=== PATIENT | male | born 1935 | race Caucasian/White ===

== ENCOUNTER 2017-02-24 21:40 | Emergency (ER) | payer MEDICARE, BC ==
[2017-02-24 22:16] VITALS: BP 148/66
--- NOTE | 2017-02-24 23:10 | EDM.PDOC ---
ED HPI GENERAL MEDICAL PROBLEM - General Chief Complaint: Genitourinary Problem Stated Complaint: CATH ISSUES Time Seen by Provider: 02/24/17 22:20 Source of Information: Reports: Patient, Family History Limitations: Reports: No Limitations - History of Present Illness INITIAL COMMENTS - FREE TEXT/NARRATIVE: 81-year-old male with an indwelling Garcia catheter is having significant urethral pain. His catheter is not obstructed. He started an antibiotic 2 days ago. He is just in for some pain control. Apparently he is being rechecked by urology next week. 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, NSAIDS Penis Pain Score (Numeric/FACES): 10 - Related Data Allergies Allergy/AdvReac Type Severity Reaction Status Date / Time ciprofloxacin [From Cipro] Allergy Cannot Verified 02/24/17 22:18 Remember ciprofloxacin HCl Allergy Cannot Verified 02/24/17 22:18 [From Cipro] Remember latex Allergy Rash Verified 02/24/17 22:18 Home Meds: Home Meds Albuterol/Ipratropium [DuoNeb 3.0-0.5 MG/3 ML] 3 ml PO Q2H PRN 09/21/14 [History ] Arformoterol [Brovana] 2 ml NEB BID 09/21/14 [History] Budesonide [Pulmicort] 2 ml NEB BID 09/21/14 [History] Furosemide [Lasix] 80 mg PO BID 09/21/14 [History] Insulin Aspart [NovoLOG] 6 units SUBCUT TIDM 09/21/14 [History] Insulin Glargine,Hum.Rec.Anlog [Lantus Solostar] 25 mg SUBCUT BEDTIME 09/21/14 [ History] Metolazone [Zaroxolyn] 5 mg PO DAILY 09/21/14 [History] Warfarin Sliding Scale [Coumadin Sliding Scale] 5 mg PO .MOTOTHFRSASU 09/21/14 [ History] Isosorbide Mononitrate [Imdur] 60 mg PO DAILY 10/22/14 [History] Warfarin Sliding Scale [Coumadin Sliding Scale] 6.25 mg PO WE 10/22/14 [History] Diltiazem HCl [Diltiazem 24Hr Cd] 240 mg PO DAILY 05/14/16 [History] Docusate Sodium [Colace] 250 mg PO TID 05/14/16 [History] Polyethylene Glycol 3350 [MiraLAX] 17 gm PO MOWEFR 05/14/16 [History] Potassium Chloride [Klor-Con M20] 20 meq PO BID 05/14/16 [History] Sennosides [Senna] 8.6 mg PO BID 05/14/16 [History] Albuterol Sulfate [Proair Hfa] 2 puff INH Q4H PRN 05/24/16 [History] Calcium Acetate [PhosLo] 1,334 mg PO TID 05/24/16 [History] Cyanocobalamin/FA/Pyridoxine [B Complex-Folic Acid] 1 tab PO DAILY 05/24/16 [ History] Fosfomycin Tromethamine [Monurol] 3 gm PO SA 05/24/16 [History] Past Medical History HEENT History: Reports: Hard of Hearing, Impaired Vision Cardiovascular History: Reports: Aneurysm, CAD, Heart Failure, High Cholesterol , Hypertension Respiratory History: Reports: COPD, Sleep Apnea Gastrointestinal History: Reports: Chronic Constipation, Hemorrhoids Genitourinary History: Reports: Dialysis, Retention, Urinary, Other (See Below) Other Genitourinary History: Has garcia Musculoskeletal History: Reports: Back Pain, Chronic Psychiatric History: Reports: Dementia Endocrine/Metabolic History: Reports: Diabetes, Type I - Infectious Disease History Infectious Disease History: Reports: Chicken Pox - Past Surgical History HEENT Surgical History: Reports: Other (See Below) Cardiovascular Surgical History: Reports: Coronary Artery Stent Social & Family History - Tobacco Use Smoking Status *Q: Current Status Unknown Years of Tobacco use: 5 Used Tobacco, but Quit: Yes Month Tobacco Last Used: sep Second Hand Smoke Exposure: No - Caffeine Use Caffeine Use: Reports: Coffee - Alcohol Use Days Per Week of Alcohol Use: 0 - Recreational Drug Use Recreational Drug Use: No ED ROS GENERAL - Review of Systems Review Of Systems: See Below Constitutional: Denies: Fever, Chills Respiratory: Denies: Shortness of Breath GI/Abdominal: Reports: Abdominal Pain (Lower abdominal and suprapubic discomfort ) : Reports: Urgency, Other (Indwelling Garcia catheter). Denies: Dysuria ED EXAM, RENAL/ - Physical Exam Exam: See Below Exam Limited By: No Limitations General Appearance: Alert, No Apparent Distress Respiratory/Chest: No Respiratory Distress GI/Abdominal: Non-Tender Neurological: Alert, Oriented Skin Exam: Warm, Dry Course - Vital Signs Last Recorded V/S: Last Vital Signs Temp 98.6 F 02/24/17 22:09 Pulse 80 02/24/17 22:09 Resp 14 02/24/17 22:09 BP 148/66 H 02/24/17 22:09 Pulse Ox 96 02/24/17 22:09 - Re-Assessments/Exams Free Text/Narrative Re-Assessment/Exam: 02/25/17 01:05 After discussion with the patient and his , I did agree to give him 20 hydrocodone to use for pain control until he can be rechecked Sunday by his primary physician. I emphasized the importance of continuing the antibiotic. He can return anytime if worsening. Departure - Departure Time of Disposition: 23:41 Disposition: Home, Self-Care 01 Condition: fair Clinical Impression: Urethritis, unspecified - Discharge Information Instructions: Urethritis, Adult Referrals: Cyrus Deleon MD [Primary Care Provider] - Forms: ED Department Discharge Care Plan Goals: Continue your regular medications including antibiotics, use pain medications as needed. Recheck as scheduled.
== END 2017-02-24 23:15 | disposition home or self-care (01) ==
LOC: JP.ED 21:40
DX: N34.2 Other urethritis (principal); I10 Essential (primary) hypertension; I50.9 Heart failure, unspecified; I25.10 Atherosclerotic heart disease of native coronary artery without angina pectoris; E78.00 Pure hypercholesterolemia, unspecified; J44.9 Chronic obstructive pulmonary disease, unspecified; E10.9 Type 1 diabetes mellitus without complications; F03.90 Unspecified dementia, unspecified severity, without behavioral disturbance, psychotic disturbance, mood disturbance, and anxiety; Z79.4 Long term (current) use of insulin; Z79.01 Long term (current) use of anticoagulants; Z79.899 Other long term (current) drug therapy; Z88.1 Allergy status to other antibiotic agents; Z91.040 Latex allergy status; Z95.5 Presence of coronary angioplasty implant and graft
CPT/HCPCS: 99282; 99283

== ENCOUNTER 2017-05-07 15:12 | Emergency (ER) | payer MEDICARE, BC ==
--- NOTE | 2017-05-07 16:08 | EDM.PDOC ---
ED HPI GENERAL MEDICAL PROBLEM - General Chief Complaint: Chest Pain Stated Complaint: CAME FROM [facility] Time Seen by Provider: 05/07/17 15:40 Source of Information: Reports: Patient, Family History Limitations: Reports: No Limitations - History of Present Illness INITIAL COMMENTS - FREE TEXT/NARRATIVE: Patient presents to ER today from dialysis center with complaints of left sided chest pain. He states he fell last night out of bed onto the floor. He was not able to get up out of bed and lift assistance was requested. Onset: Today Duration: Hour(s): Location: Reports: Other (left lateral chest) Quality: Reports: Ache, Stabbing, Throbbing Severity: Moderate Improves with: Reports: None Worsens with: Reports: Movement Associated Symptoms: Reports: Chest Pain, Shortness of Breath. Denies: Cough, Diaphoresis, Fever/Chills, Headaches, Nausea/Vomiting Left Lower Chest Pain Score (Numeric/FACES): 8 - Related Data Allergies Allergy/AdvReac Type Severity Reaction Status Date / Time ciprofloxacin [From Cipro] Allergy Cannot Verified 05/07/17 15:31 Remember ciprofloxacin HCl Allergy Cannot Verified 05/07/17 15:31 [From Cipro] Remember latex Allergy Rash Verified 05/07/17 15:31 Home Meds: Home Meds Albuterol/Ipratropium [DuoNeb 3.0-0.5 MG/3 ML] 3 ml PO Q2H PRN 09/21/14 [History ] Arformoterol [Brovana] 2 ml NEB BID 09/21/14 [History] Budesonide [Pulmicort] 2 ml NEB BID 09/21/14 [History] Furosemide [Lasix] 80 mg PO BID 09/21/14 [History] Insulin Aspart [NovoLOG] 6 units SUBCUT TIDM 09/21/14 [History] Insulin Glargine,Hum.Rec.Anlog [Lantus Solostar] 25 mg SUBCUT BEDTIME 09/21/14 [ History] Metolazone [Zaroxolyn] 5 mg PO DAILY 09/21/14 [History] Warfarin Sliding Scale [Coumadin Sliding Scale] 5 mg PO .MOTOTHFRSASU 09/21/14 [ History] Isosorbide Mononitrate [Imdur] 60 mg PO DAILY 10/22/14 [History] Warfarin Sliding Scale [Coumadin Sliding Scale] 6.25 mg PO WE 10/22/14 [History] Diltiazem HCl [Diltiazem 24Hr Cd] 240 mg PO DAILY 05/14/16 [History] Docusate Sodium [Colace] 250 mg PO TID 05/14/16 [History] Polyethylene Glycol 3350 [MiraLAX] 17 gm PO MOWEFR 05/14/16 [History] Potassium Chloride [Klor-Con M20] 20 meq PO BID 05/14/16 [History] Sennosides [Senna] 8.6 mg PO BID 05/14/16 [History] Albuterol Sulfate [Proair Hfa] 2 puff INH Q4H PRN 05/24/16 [History] Calcium Acetate [PhosLo] 1,334 mg PO TID 05/24/16 [History] Cyanocobalamin/FA/Pyridoxine [B Complex-Folic Acid] 1 tab PO DAILY 05/24/16 [ History] Fosfomycin Tromethamine [Monurol] 3 gm PO SA 05/24/16 [History] Past Medical History HEENT History: Reports: Hard of Hearing, Impaired Vision Cardiovascular History: Reports: Afib, Aneurysm, CAD, Heart Failure, High Cholesterol, Other (See Below) Other Cardiovascular History: hypotension Respiratory History: Reports: COPD, Sleep Apnea, Other (See Below) Other Respiratory History: C-pap at home Gastrointestinal History: Reports: Chronic Constipation, Hemorrhoids Genitourinary History: Reports: Dialysis, Retention, Urinary, Other (See Below) Other Genitourinary History: self cath Musculoskeletal History: Reports: Back Pain, Chronic Psychiatric History: Reports: Dementia, Depression Endocrine/Metabolic History: Reports: Diabetes, Type I - Infectious Disease History Infectious Disease History: Reports: Chicken Pox, Measles, Mumps, Shingles - Past Surgical History HEENT Surgical History: Reports: Cataract Surgery Cardiovascular Surgical History: Reports: Coronary Artery Stent Social & Family History - Tobacco Use Smoking Status *Q: Current Status Unknown Years of Tobacco use: 5 Used Tobacco, but Quit: Yes Month Tobacco Last Used: sep Second Hand Smoke Exposure: No - Caffeine Use Caffeine Use: Reports: Coffee, Soda - Alcohol Use Days Per Week of Alcohol Use: 0 - Recreational Drug Use Recreational Drug Use: No ED ROS GENERAL - Review of Systems Review Of Systems: See Below Constitutional: Denies: Fever, Chills, Diaphoresis HEENT: Reports: No Symptoms Respiratory: Reports: Shortness of Breath, Sputum. Denies: Wheezing, Pleuritic Chest Pain, Cough, Hemoptysis Cardiovascular: Reports: Chest Pain, Dyspnea on Exertion. Denies: Edema, Lightheadedness, Palpitations, Syncope Endocrine: Reports: No Symptoms GI/Abdominal: Denies: Abdominal Pain, Constipation, Diarrhea, Nausea, Vomiting : Reports: Urinary Retention, Other (Patient self-cath). Denies: Discharge, Dysuria, Flank Pain, Urgency Musculoskeletal: Reports: Other (He reports left rib pain radiates to left mid- back area. ). Denies: Neck Pain, Shoulder Pain Skin: Denies: Bruising, Rash, Erythema, Wound Neurological: Reports: Weakness. Denies: Confusion, Dizziness, Headache, Numbness, Syncope, Tingling Psychiatric: Reports: No Symptoms Hematologic/Lymphatic: Reports: No Symptoms Immunologic: Reports: No Symptoms ED EXAM, GENERAL - Physical Exam Exam: See Below Free Text/Narrative:: Venkat is an alert, oriented 81 year old male presenting with complaints of left lateral rib pain radiating to chest, SOB with exertion and speaking. He was completing his dialysis run today and he developed chest pain, left rib pain. Fall last night out of bed, he is unsure if he hit his left side on any objects. Exam Limited By: No Limitations General Appearance: Alert, WD/WN, Moderate Distress Eye Exam: Bilateral Eye: EOMI, PERRL Ears: Normal External Exam, Normal Canal, Hearing Grossly Normal, Other ( Cerumen to bilateral canals. ) Ear Exam: Bilateral Ear: Auricle Normal, Canal Normal Nose: Normal Inspection, Normal Mucosa, No Blood Throat/Mouth: Normal Inspection, Normal Lips, Normal Oropharynx, Normal Voice, No Airway Compromise Head: Atraumatic, Normocephalic Neck: Normal Inspection, Supple, Non-Tender, Full Range of Motion. No: Lymphadenopathy (R), Lymphadenopathy (L) Respiratory/Chest: Decreased Breath Sounds, Accessory Muscle Use, Splinting, Other (left rib pain) Cardiovascular: No Edema, No Murmur, Other (Atrial fibrillation) Peripheral Pulses: 1+: Dorsalis Pedis (L), Dorsalis Pedis (R), 2+: Radial (L), Radial (R) GI/Abdominal: Normal Bowel Sounds, Soft, Non-Tender, Other (large, round abdomen ) Back Exam: Normal Inspection, Full Range of Motion. No: CVA Tenderness (R), CVA Tenderness (L) Extremities: Normal Range of Motion, Non-Tender, No Pedal Edema, Other (Left great toe wound with mild redness, right foot callous to lateral aspect, callous noted to right great toe. Mild erythema to left great toe, no fluctuance noted. ) Neurological: Alert, Oriented, CN II-XII Intact, Normal Cognition, No Motor/ Sensory Deficits Psychiatric: Normal Affect, Flat Affect Skin Exam: Warm, Dry, Intact, Normal Color, No Rash EKG INTERPRETATION EKG Date: 05/07/17 EKG Interpretation Comments: Atrial fibrillation Course - Vital Signs Last Recorded V/S: Last Vital Signs Temp 36.4 C 05/07/17 15:30 Pulse 95 05/07/17 17:20 Resp 20 05/07/17 17:20 BP 132/51 L 05/07/17 17:20 Pulse Ox 98 05/07/17 17:20 - Orders/Labs/Meds Orders: Active Orders 24 hr Category Date Time Status EKG Documentation Completion [RC] ASDIRECTED Care 05/07/17 15:28 Active Chest wo Cont [CT] Stat Exams 05/07/17 15:54 Taken EKG 12 Lead [EK] Routine Ther 05/07/17 15:28 Ordered Labs: Laboratory Tests 05/07/17 05/07/17 05/07/17 Range/Units 15:57 16:05 16:05 WBC 6.9 (4.5-11.0) K/uL RBC 3.55 L (4.30-5.90) M/uL Hgb 12.1 (12.0-15.0) g/dL Hct 34.7 L (40.0-54.0) % MCV 98 (80-98) fL MCH 34 H (27-31) pg MCHC 35 (32-36) % Plt Count 234 (150-400) K/uL Neut % (Auto) 72 H (36-66) % Lymph % (Auto) 15 L (24-44) % Grand % (Auto) 10 H (2-6) % Eos % (Auto) 2 (2-4) % Baso % (Auto) 0 (0-1) % PT 43.5 H (9.5-12.0) sec INR 3.84 H (0.80-1.20) APTT 43.9 H (27.0-36.0) sec Puncture Site Rt.radial ABG pH 7.505 H (7.350-7.450) ABG pCO2 33.4 L (35.0-42.0) mmHg ABG pO2 73.6 L (75.0-100.0) mmHg ABG HCO3 26.2 H (22.0-26.0) mmol/L ABG Total CO2 23.3 (23.0-27.0) mmol/L ABG O2 Saturation 95.5 (95.0-98.0) % ABG O2 Content 15.6 (15.0-23.0) %vol ABG Base Excess 3.6 mm/L ABG Hemoglobin 11.8 L (13.5-18.0) g/dL ABG Oxyhemoglobin 93.7 % ABG Carboxyhemoglobin 1.4 (0.0-1.6) % ABG Methemoglobin 0.5 % Michael Test TNP O2 Delivery Device Nasal cannula Oxygen Flow Rate 4 L Sodium (140-148) mmol/L Potassium (3.6-5.2) mmol/L Chloride (100-108) mmol/L Carbon Dioxide (21-32) mmol/L Anion Gap (5.0-14.0) mmol/L BUN (7-18) mg/dL Creatinine (0.8-1.3) mg/dL Est Cr Clr Drug Dosing mL/min Estimated GFR (MDRD) (>60) Glucose (74-106) mg/dL Calcium (8.5-10.1) mg/dL Magnesium (1.8-2.4) mg/dL Total Bilirubin (0.2-1.0) mg/dL AST (15-37) U/L ALT (12-78) U/L Alkaline Phosphatase (46-116) U/L Troponin I (0.000-0.056) ng/mL [id number]-G-[id number] Pept (5-450) pg/mL Total Protein (6.4-8.2) g/dL Albumin (3.4-5.0) g/dL Globulin (2.3-3.5) g/dL Albumin/Globulin Ratio (1.2-2.2) TSH, Ultra Sensitive (0.358-3.740) uIU/mL Urine Color Urine Appearance Urine pH (4.5-8.0) Ur Specific [place] (1.008-1.030) Urine Protein (NEGATIVE) mg/dL Urine Glucose (UA) (NEGATIVE) mg/dL Urine Ketones (NEGATIVE) mg/dL Urine Occult Blood (NEGATIVE) Urine Nitrite (NEGAITVE) Urine Bilirubin (NEGATIVE) Urine Urobilinogen (NORMAL) mg/dL Ur Leukocyte Esterase (NEGATIVE) 05/07/17 05/07/17 05/07/17 Range/Units 16:05 16:06 16:06 WBC (4.5-11.0) K/uL RBC (4.30-5.90) M/uL Hgb (12.0-15.0) g/dL Hct (40.0-54.0) % MCV (80-98) fL MCH (27-31) pg MCHC (32-36) % Plt Count (150-400) K/uL Neut % (Auto) (36-66) % Lymph % (Auto) (24-44) % Grand % (Auto) (2-6) % Eos % (Auto) (2-4) % Baso % (Auto) (0-1) % PT (9.5-12.0) sec INR (0.80-1.20) APTT (27.0-36.0) sec Puncture Site ABG pH (7.350-7.450) ABG pCO2 (35.0-42.0) mmHg ABG pO2 (75.0-100.0) mmHg ABG HCO3 (22.0-26.0) mmol/L ABG Total CO2 (23.0-27.0) mmol/L ABG O2 Saturation (95.0-98.0) % ABG O2 Content (15.0-23.0) %vol ABG Base Excess mm/L ABG Hemoglobin (13.5-18.0) g/dL ABG Oxyhemoglobin % ABG Carboxyhemoglobin (0.0-1.6) % ABG Methemoglobin % Michael Test O2 Delivery Device Oxygen Flow Rate L Sodium 130 L (140-148) mmol/L Potassium 4.4 (3.6-5.2) mmol/L Chloride 90 L (100-108) mmol/L Carbon Dioxide 33 H (21-32) mmol/L Anion Gap 11.4 (5.0-14.0) mmol/L BUN 45 H (7-18) mg/dL Creatinine 4.6 H* (0.8-1.3) mg/dL Est Cr Clr Drug Dosing 13.59 mL/min Estimated GFR (MDRD) 12 L (>60) Glucose 90 (74-106) mg/dL Calcium 9.0 (8.5-10.1) mg/dL Magnesium 2.0 (1.8-2.4) mg/dL Total Bilirubin 0.6 (0.2-1.0) mg/dL AST 14 L (15-37) U/L ALT 18 (12-78) U/L Alkaline Phosphatase 46 (46-116) U/L Troponin I < 0.017 (0.000-0.056) ng/mL Sww-Y-Ujbjketqskj Pept 2697 H (5-450) pg/mL Total Protein 7.8 (6.4-8.2) g/dL Albumin 3.7 (3.4-5.0) g/dL Globulin 4.1 H (2.3-3.5) g/dL Albumin/Globulin Ratio 0.9 L (1.2-2.2) TSH, Ultra Sensitive 1.837 (0.358-3.740) uIU/mL Urine Color Urine Appearance Urine pH (4.5-8.0) Ur Specific [place] (1.008-1.030) Urine Protein (NEGATIVE) mg/dL Urine Glucose (UA) (NEGATIVE) mg/dL Urine Ketones (NEGATIVE) mg/dL Urine Occult Blood (NEGATIVE) Urine Nitrite (NEGAITVE) Urine Bilirubin (NEGATIVE) Urine Urobilinogen (NORMAL) mg/dL Ur Leukocyte Esterase (NEGATIVE) 05/07/17 Range/Units 17:29 WBC (4.5-11.0) K/uL RBC (4.30-5.90) M/uL Hgb (12.0-15.0) g/dL Hct (40.0-54.0) % MCV (80-98) fL MCH (27-31) pg MCHC (32-36) % Plt Count (150-400) K/uL Neut % (Auto) (36-66) % Lymph % (Auto) (24-44) % Grand % (Auto) (2-6) % Eos % (Auto) (2-4) % Baso % (Auto) (0-1) % PT (9.5-12.0) sec INR (0.80-1.20) APTT (27.0-36.0) sec Puncture Site ABG pH (7.350-7.450) ABG pCO2 (35.0-42.0) mmHg ABG pO2 (75.0-100.0) mmHg ABG HCO3 (22.0-26.0) mmol/L ABG Total CO2 (23.0-27.0) mmol/L ABG O2 Saturation (95.0-98.0) % ABG O2 Content (15.0-23.0) %vol ABG Base Excess mm/L ABG Hemoglobin (13.5-18.0) g/dL ABG Oxyhemoglobin % ABG Carboxyhemoglobin (0.0-1.6) % ABG Methemoglobin % Michael Test O2 Delivery Device Oxygen Flow Rate L Sodium (140-148) mmol/L Potassium (3.6-5.2) mmol/L Chloride (100-108) mmol/L Carbon Dioxide (21-32) mmol/L Anion Gap (5.0-14.0) mmol/L BUN (7-18) mg/dL Creatinine (0.8-1.3) mg/dL Est Cr Clr Drug Dosing mL/min Estimated GFR (MDRD) (>60) Glucose (74-106) mg/dL Calcium (8.5-10.1) mg/dL Magnesium (1.8-2.4) mg/dL Total Bilirubin (0.2-1.0) mg/dL AST (15-37) U/L ALT (12-78) U/L Alkaline Phosphatase (46-116) U/L Troponin I (0.000-0.056) ng/mL Bhm-K-Tnelvensxpu Pept (5-450) pg/mL Total Protein (6.4-8.2) g/dL Albumin (3.4-5.0) g/dL Globulin (2.3-3.5) g/dL Albumin/Globulin Ratio (1.2-2.2) TSH, Ultra Sensitive (0.358-3.740) uIU/mL Urine Color Yellow Urine Appearance Clear Urine pH 7.0 (4.5-8.0) Ur Specific [place] 1.010 (1.008-1.030) Urine Protein Negative (NEGATIVE) mg/dL Urine Glucose (UA) Normal (NEGATIVE) mg/dL Urine Ketones Negative (NEGATIVE) mg/dL Urine Occult Blood Trace (NEGATIVE) Urine Nitrite Negative (NEGAITVE) Urine Bilirubin Negative (NEGATIVE) Urine Urobilinogen Normal (NORMAL) mg/dL Ur Leukocyte Esterase Large (NEGATIVE) Meds: Medications Discontinued Medications Generic Name Dose Route Start Last Admin Trade Name Freq PRN Reason Stop Dose Admin Furosemide 60 mg 05/07/17 17:34 Lasix IVPUSH 05/07/17 17:35 ONETIME ONE Furosemide 60 mg 05/07/17 17:51 Lasix IM 05/07/17 17:52 ONETIME ONE - Re-Assessments/Exams Free Text/Narrative Re-Assessment/Exam: 05/07/17 17:35 Patient status, lab work reviewed with Dr. Lovell. Patient offered transfer to tertiary facility, patient and his declined. Patient continues to be DNR status. Will give lasix 60mg IM, discharge to home, complete extra dialysis run tomorrow with routine runs as scheduled this week. Strongly recommended close follow up with Dr. Deleon and nephrology On Sunday for recheck. Instructed patient and his to return for any worsening. Departure - Departure Time of Disposition: 17:39 Disposition: Home, Self-Care 01 Condition: Poor Clinical Impression: Congestive heart failure (CHF), Rib pain on left side, Anxiety Instructions: Heart Failure, Dnas-yw-Arjx, Rib Contusion Referrals: Cyrus Deleon MD [Primary Care Provider] - Forms: ED Department Discharge Additional Instructions: You have suffered chest pain during your dialysis run after a fall from bed, congestive heart failure and chronic renal disease. You will need to complete the scheduled extra dialysis run tomorrow in [place], [place] as well as your routine run on Sunday this week. CT of the chest showed no trauma or fractures. All other findings were consistent with previous CT scan. Transfer to [place] was offered today and declined. You need to follow up with nephrology and Dr. Deleon this week to discuss your chronic illnesses and continued care. Take current medications as directed. You can take hydroxyzine 25mg PO three times a day for anxiety. Use of acetaminophen for pain. Return to the nearest ER or clinic for worsening, issues or concerns. - My Orders Last 24 Hours: My Active Orders 05/07/17 15:28 EKG Documentation Completion [RC] ASDIRECTED EKG 12 Lead [EK] Routine 05/07/17 15:54 Chest wo Cont [CT] Stat - Assessment/Plan Last 24 Hours: My Active Orders 05/07/17 15:28 EKG Documentation Completion [RC] ASDIRECTED EKG 12 Lead [EK] Routine 05/07/17 15:54 Chest wo Cont [CT] Stat Assessment:: CHF CKD Dialysis Anxiety Plan: Chest pain during dialysis run after a fall from bed, congestive heart failure, anxiety and chronic renal disease. Patient will need to complete the scheduled extra dialysis run tomorrow in [place], [place] as well as routine run on Sunday/Sunday this week. CT of the chest showed no trauma or fractures. All other findings were consistent with previous CT scan. Transfer to [place] was offered today and declined by patient and his x 3. Patient is DNR status. Patient needs to follow up with nephrology and Dr. Deleon this week as soon as possible to discuss your chronic illnesses and continued care due to chronic nature and declining status. Patient and his 's questions answered, they are in agreement with plan. Take current medications as directed. You can take hydroxyzine 25mg PO three times a day for anxiety and acetaminophen for pain. Return to the nearest ER or clinic for worsening, issues or concerns.
[2017-05-07] MEDS ORDERED: Furosemide 40 MG/4 ML VIAL IVPUSH ONE (17:34)
[2017-05-07] MEDS ORDERED: Furosemide 40 MG/4 ML VIAL IM ONE (17:51)
[2017-05-07 18:27] VITALS: BP 127/57
== END 2017-05-07 18:33 | disposition home or self-care (01) ==
LOC: JP.ED 15:12
DX: I50.9 Heart failure, unspecified (principal); R07.81 Pleurodynia; F41.9 Anxiety disorder, unspecified; I48.91 Unspecified atrial fibrillation; I25.10 Atherosclerotic heart disease of native coronary artery without angina pectoris; E78.00 Pure hypercholesterolemia, unspecified; F32.9 Major depressive disorder, single episode, unspecified; J44.9 Chronic obstructive pulmonary disease, unspecified; F03.90 Unspecified dementia, unspecified severity, without behavioral disturbance, psychotic disturbance, mood disturbance, and anxiety; E10.9 Type 1 diabetes mellitus without complications; Z98.49 Cataract extraction status, unspecified eye; Z95.1 Presence of aortocoronary bypass graft; Z79.01 Long term (current) use of anticoagulants; Z79.4 Long term (current) use of insulin; Z79.899 Other long term (current) drug therapy; Z88.1 Allergy status to other antibiotic agents; Z91.040 Latex allergy status
CPT/HCPCS: 36415; 36600; 71250; 80053; 81003; 82803; 83735; 83880; 84443; 84484; 85025; 85610; 85730; 87086; 87088; 87186; 93005; 96372; 99285; J1940; 93010; 99284

== ENCOUNTER 2017-06-08 12:41 | Emergency (ER) | payer MEDICARE, BC ==
--- NOTE | 2017-06-08 13:48 | EDM.PDOC ---
ED HPI GENERAL MEDICAL PROBLEM - General Chief Complaint: Gastrointestinal Problem Stated Complaint: NAUSEA,COUGH Time Seen by Provider: 06/08/17 13:15 Source of Information: Reports: Patient, Family History Limitations: Reports: Altered Mental Status, Uncooperative (chronic dementia, conflicting history between pt and ) - History of Present Illness INITIAL COMMENTS - FREE TEXT/NARRATIVE: Patient became nauseated and had either an episode of a very mucoid sputum production or non-billeous emisis. History conflicts between patient report and his . States was nauseated after taking Percocet, perhaps since yesterday (although some complaints of nausea/dyspepsia are variably reported by patient to be chronic), and was driving to dialysis and had possible single emisis. initially wanted to go to [place], to see surgeon who did some sort of revascularization procedure yesterday (under what sounds like MAC, patient/ uncertain if received IV regional or nerve block as well), but was sent to ED by dialysis center. His last dialysis was 2d ago, and they took off 4.8 of intended 5.1L when he had a syncopal/hypotensive episode which was self limited. He has noted an increase in sputum production, either since last night or over the last two months--patient/ uncertain. No fever, has had chronic intermittent nausea, which may be worse preprandially , but not relieved or exacerbated by eating. Also reports crampy abdominal pain for months. No diarrhea, states chronic constipation. Denies chest pain, diaphoresis. Self caths ( performs), with recent darkening of urine noted. No syncope since dialysis 2 days ago. Denies back/flank pain. Onset: Today Duration: Hour(s):, Colic (maybe), Intermittent, Recurring. No: Constant Location: Reports: Abdomen Quality: Reports: Dull Improves with: Denies: Eating Worsens with: Reports: None Associated Symptoms: Reports: Confusion (chronic), Cough (chronic), Loss of Appetite (chronic), Malaise (possibly new symptom), Nausea/Vomiting, Shortness of Breath (chronic). Denies: Chest Pain, Diaphoresis, Fever/Chills, Headaches, Rash Abdomen Pain Score (Numeric/FACES): 6 - Related Data Allergies Allergy/AdvReac Type Severity Reaction Status Date / Time ciprofloxacin [From Cipro] Allergy Cannot Verified 06/08/17 13:17 Remember ciprofloxacin HCl Allergy Cannot Verified 06/08/17 13:17 [From Cipro] Remember latex Allergy Rash Verified 06/08/17 13:17 Home Meds: Home Meds Albuterol/Ipratropium [DuoNeb 3.0-0.5 MG/3 ML] 3 ml PO Q2H PRN 09/21/14 [History ] Arformoterol [Brovana] 2 ml NEB BID 09/21/14 [History] Budesonide [Pulmicort] 2 ml NEB BID 09/21/14 [History] Furosemide [Lasix] 80 mg PO BID 09/21/14 [History] Insulin Aspart [NovoLOG] 6 units SUBCUT TIDM 09/21/14 [History] Insulin Glargine,Hum.Rec.Anlog [Lantus Solostar] 35 mg SUBCUT BEDTIME 09/21/14 [ History] Warfarin Sliding Scale [Coumadin Sliding Scale] 5 mg PO ASDIRECTED 09/21/14 [ History] Warfarin Sliding Scale [Coumadin Sliding Scale] 6.25 mg PO ASDIRECTED 10/22/14 [ History] Diltiazem HCl [Diltiazem 24Hr Cd] 240 mg PO DAILY 05/14/16 [History] Docusate Sodium [Colace] 250 mg PO TID 05/14/16 [History] Sennosides [Senna] 8.6 mg PO BID 05/14/16 [History] Albuterol Sulfate [Proair Hfa] 2 puff INH Q4H PRN 05/24/16 [History] Calcium Acetate [PhosLo] 1,334 mg PO TID 05/24/16 [History] Cyanocobalamin/FA/Pyridoxine [B Complex-Folic Acid] 1 tab PO DAILY 05/24/16 [ History] Enoxaparin [Lovenox] 80 mg IM BEDTIME 06/08/17 [History] Finasteride 5 mg PO DAILY 06/08/17 [History] Midodrine 5 mg PO ASDIRECTED 06/08/17 [History] Ondansetron [Zofran ODT] 4 mg PO Q6H PRN 06/08/17 [History] Phenazopyridine [Pyridium] 200 mg PO TID PRN 06/08/17 [History] clonazePAM [Clonazepam] 0.25 mg PO TID PRN 06/08/17 [History] oxyCODONE HCl/Acetaminophen [oxyCODONE-Acetaminophen 5-325] 1 tab PO Q4H PRN [History] Past Medical History HEENT History: Reports: Hard of Hearing, Impaired Vision Cardiovascular History: Reports: Afib, Aneurysm, CAD, Heart Failure, High Cholesterol, Other (See Below) Other Cardiovascular History: hypotension Respiratory History: Reports: COPD, Sleep Apnea, Other (See Below) Other Respiratory History: C-pap at home Gastrointestinal History: Reports: Chronic Constipation, Hemorrhoids Genitourinary History: Reports: Dialysis, Retention, Urinary, Other (See Below) Other Genitourinary History: self cath Musculoskeletal History: Reports: Back Pain, Chronic Psychiatric History: Reports: Dementia, Depression Endocrine/Metabolic History: Reports: Diabetes, Type I - Infectious Disease History Infectious Disease History: Reports: Chicken Pox - Past Surgical History HEENT Surgical History: Reports: Cataract Surgery Cardiovascular Surgical History: Reports: Coronary Artery Stent Social & Family History - Tobacco Use Smoking Status *Q: Current Status Unknown Years of Tobacco use: 5 Used Tobacco, but Quit: Yes Month Tobacco Last Used: sep Second Hand Smoke Exposure: No - Caffeine Use Caffeine Use: Reports: Coffee, Soda - Alcohol Use Days Per Week of Alcohol Use: 0 - Recreational Drug Use Recreational Drug Use: No ED ROS GENERAL - Review of Systems Review Of Systems: See Below Constitutional: Reports: Malaise, Weakness (chronic, non-focal, no new changes) . Denies: Fever, Chills HEENT: Reports: Dental Pain (wears dentures, c/o chronic hypersalivation) Respiratory: Reports: Shortness of Breath (improved w/ CPAP), Sputum. Denies: Hemoptysis Cardiovascular: Denies: Chest Pain, Claudication, Edema Endocrine: Reports: Fatigue GI/Abdominal: Reports: Abdominal Pain, Anorexia, Constipation, Distension ( chronic, attributed to ascites). Denies: Black Stool, Bloody Stool, Diarrhea, Hematemesis : Reports: No Symptoms Musculoskeletal: Reports: Arm Pain (post-op) Skin: Reports: No Symptoms. Denies: Bruising Neurological: Reports: Confusion (chronic dementia) Psychiatric: Reports: No Symptoms Hematologic/Lymphatic: Denies: Easy Bleeding, Easy Bruising Immunologic: Reports: No Symptoms ED EXAM, GI/ABD - Physical Exam Exam: See Below Exam Limited By: Uncooperative General Appearance: Alert, No Apparent Distress, Obese. No: Anxious, Lethargic Eyes: Bilateral: Normal Appearance Ears: Normal External Exam Nose: Normal Inspection Throat/Mouth: Normal Inspection, Normal Lips, Normal Voice. No: Normal Teeth Head: Atraumatic, Normocephalic, Other (no JVD) Neck: Normal Inspection, Supple, Non-Tender, Full Range of Motion. No: Lymphadenopathy (R) Respiratory/Chest: No Respiratory Distress, No Accessory Muscle Use, Chest Non- Tender, Decreased Breath Sounds, Crackles, Wheezing (diffuse expiratory wheeze with prolonged expiratory phase). No: Lungs Clear, Normal Breath Sounds, Respiratory Distress, Rales, Rhonchi Cardiovascular: No Edema, No JVD, Systolic Murmur (HSM LSB). No: JVD GI/Abdominal Exam: Normal Bowel Sounds, Soft, Non-Tender, No Organomegaly, Distended (limited exam due to habitus, exam c/w ascites), Tender (RUQ, no rebound or guarding) Back Exam: Normal Inspection, Full Range of Motion. No: CVA Tenderness (R), CVA Tenderness (L) Extremities: Normal Range of Motion (decreased capilary refil on L hand), Mottled, Other (wound C/D/I w/o e/o ifxn). No: Pedal Edema, Increased Warmth Neurological: Alert, CN II-XII Intact, Normal Reflexes, No Motor/Sensory Deficits, Confused, Disoriented, Slow to Respond, Memory Loss Recent Events. No : Oriented, Normal Cognition Psychiatric: Flat Affect Skin Exam: Warm, Dry, Intact, Normal Color, No Rash Lymphatic: No Adenopathy Comments: Left hand pulse oximetry wave form was a simple, but distinct, waveform w/o normal biphasic/notch. reports previously unable to obtain in his LUE. Pulses markedly diminished L more than R. EKG INTERPRETATION EKG Date: 06/08/17 Time: 13:59 Rhythm: A-Fib EKG Interpretation Comments: Diffuse low voltage c/w h/o COPD, nonspecific IVCD, no stigmata of hyperkalemia. Course - Vital Signs Last Recorded V/S: Last Vital Signs Temp 36.4 C 06/08/17 13:18 Pulse 89 06/08/17 14:59 Resp 20 06/08/17 13:58 BP 70/30 L 06/08/17 14:59 Pulse Ox 98 06/08/17 14:59 - Orders/Labs/Meds Orders: Active Orders 24 hr Category Date Time Status EKG Documentation Completion [RC] ASDIRECTED Care 06/08/17 13:37 Active CULTURE URINE [RM] Stat Lab 06/08/17 14:25 Received cefTRIAXone [Rocephin] 1 gm Med 06/08/17 15:52 Active Sodium Chloride 0.9% [Normal Saline] 50 ml IV ONETIME EKG 12 Lead [EK] Routine Ther 06/08/17 13:37 Ordered Medication Orders Ceftriaxone Sodium 1 gm/ (Sodium Chloride) 50 mls @ 100 mls/hr IV ONETIME ONE Stop: 06/08/17 16:21 Labs: Laboratory Tests 06/08/17 06/08/17 06/08/17 Range/Units 13:47 13:47 13:47 WBC 6.8 (4.5-11.0) K/uL RBC 2.52 L (4.30-5.90) M/uL Hgb 8.6 L D (12.0-15.0) g/dL Hct 25.4 L (40.0-54.0) % MCV 101 H (80-98) fL MCH 34 H (27-31) pg MCHC 34 (32-36) % Plt Count 183 (150-400) K/uL Neut % (Auto) 82 H (36-66) % Lymph % (Auto) 9 L (24-44) % [place] % (Auto) 8 H (2-6) % Eos % (Auto) 1 L (2-4) % Baso % (Auto) 0 (0-1) % PT 11.4 (9.5-12.0) sec INR 1.06 D (0.80-1.20) Sodium 125 L (140-148) mmol/L Potassium 4.6 (3.6-5.2) mmol/L Chloride 88 L (100-108) mmol/L Carbon Dioxide 28 (21-32) mmol/L Anion Gap 13.6 (5.0-14.0) mmol/L BUN 78 H* D (7-18) mg/dL Creatinine 6.0 H* (0.8-1.3) mg/dL Est Cr Clr Drug Dosing 10.43 mL/min Estimated GFR (MDRD) 9 L (>60) Glucose 159 H (74-106) mg/dL Calcium 8.8 (8.5-10.1) mg/dL Total Bilirubin 0.8 (0.2-1.0) mg/dL AST 11 L (15-37) U/L ALT 14 (12-78) U/L Alkaline Phosphatase 44 L (46-116) U/L Total Protein 6.8 (6.4-8.2) g/dL Albumin 3.4 (3.4-5.0) g/dL Globulin 3.4 (2.3-3.5) g/dL Albumin/Globulin Ratio 1.0 L (1.2-2.2) Urine Color Urine Appearance Urine pH (4.5-8.0) Ur Specific [place] (1.008-1.030) Urine Protein (NEGATIVE) mg/dL Urine Glucose (UA) (NEGATIVE) mg/dL Urine Ketones (NEGATIVE) mg/dL Urine Occult Blood (NEGATIVE) Urine Nitrite (NEGAITVE) Urine Bilirubin (NEGATIVE) Urine Urobilinogen (NORMAL) mg/dL Ur Leukocyte Esterase (NEGATIVE) Urine RBC (0-5) Urine WBC (0-5) Ur Epithelial Cells Amorphous Sediment Urine Bacteria Urine Mucus 06/08/17 Range/Units 14:22 WBC (4.5-11.0) K/uL RBC (4.30-5.90) M/uL Hgb (12.0-15.0) g/dL Hct (40.0-54.0) % MCV (80-98) fL MCH (27-31) pg MCHC (32-36) % Plt Count (150-400) K/uL Neut % (Auto) (36-66) % Lymph % (Auto) (24-44) % [place] % (Auto) (2-6) % Eos % (Auto) (2-4) % Baso % (Auto) (0-1) % PT (9.5-12.0) sec INR (0.80-1.20) Sodium (140-148) mmol/L Potassium (3.6-5.2) mmol/L Chloride (100-108) mmol/L Carbon Dioxide (21-32) mmol/L Anion Gap (5.0-14.0) mmol/L BUN (7-18) mg/dL Creatinine (0.8-1.3) mg/dL Est Cr Clr Drug Dosing mL/min Estimated GFR (MDRD) (>60) Glucose (74-106) mg/dL Calcium (8.5-10.1) mg/dL Total Bilirubin (0.2-1.0) mg/dL AST (15-37) U/L ALT (12-78) U/L Alkaline Phosphatase (46-116) U/L Total Protein (6.4-8.2) g/dL Albumin (3.4-5.0) g/dL Globulin (2.3-3.5) g/dL Albumin/Globulin Ratio (1.2-2.2) Urine Color [place] Urine Appearance Turbid Urine pH 5.0 (4.5-8.0) Ur Specific [place] 1.020 (1.008-1.030) Urine Protein 100 H (NEGATIVE) mg/dL Urine Glucose (UA) Normal (NEGATIVE) mg/dL Urine Ketones Negative (NEGATIVE) mg/dL Urine Occult Blood Large (NEGATIVE) Urine Nitrite Positive H (NEGAITVE) Urine Bilirubin Small (NEGATIVE) Urine Urobilinogen 1 (NORMAL) mg/dL Ur Leukocyte Esterase Large (NEGATIVE) Urine RBC Packed H (0-5) Urine WBC Packed H (0-5) Ur Epithelial Cells Not seen Amorphous Sediment Not seen Urine Bacteria Many Urine Mucus Not seen Meds: Medications Generic Name Dose Route Start Last Admin Trade Name Freq PRN Reason Stop Dose Admin Ceftriaxone Sodium 1 gm/ 50 mls @ 100 mls/hr 06/08/17 15:52 Sodium Chloride IV 06/08/17 16:21 ONETIME ONE Departure - Departure Time of Disposition: 16:08 Disposition: Home, Self-Care 01 Clinical Impression: Vomiting, UTI, Urinary tract infectious disease, Renal failure, Renal dialysis status - Discharge Information Instructions: Pain Medicine Instructions, [id number] Referrals: Cyrus Deleon MD [Primary Care Provider] - Forms: ED Department Discharge Additional Instructions: Follow up with your regular doctor on Sunday. Take Percocet (oxycodone/APAP) with food. Cefdinir once a day (take after dialysis). Return if worse, new problems, or not improving. - My Orders Last 24 Hours: My Active Orders 06/08/17 13:37 EKG Documentation Completion [RC] ASDIRECTED EKG 12 Lead [EK] Routine 06/08/17 14:25 CULTURE URINE [RM] Stat 06/08/17 15:52 cefTRIAXone [Rocephin] 1 gm Sodium Chloride 0.9% [Normal Saline] 50 ml IV ONETIME - Assessment/Plan Last 24 Hours: My Active Orders 06/08/17 13:37 EKG Documentation Completion [RC] ASDIRECTED EKG 12 Lead [EK] Routine 06/08/17 14:25 CULTURE URINE [RM] Stat 06/08/17 15:52 cefTRIAXone [Rocephin] 1 gm Sodium Chloride 0.9% [Normal Saline] 50 ml IV ONETIME Assessment:: Patient with significant pyuria and numerous gram negative rods in urine. Recognize patient is likely chronically colonized, but given degree of pyuria and bacturia on gram stain will treat as UTI, with close followup and adjustment (and reassessment of risk/benefit) by his PCP. Will likely need closer monitoring of INR as well. Nausea and possible episode of emisis is likely due to taking Percocet and motion in car post-operatively. Will need to follow up with his surgeon and monitor. Patient refused dialysis today by [facility]. Given ECG and electrolyte panel, it is likely safe to wait until Sunday. Plan: Follow up culture and monitor INR by PCP. Follow up with surgeon. Dialysis on Sunday.
--- NOTE | 2017-06-08 14:32 | CR ---
Chest Comparison: 04/09/2013. Findings: Moderate cardiomegaly. Linear interstitial densities are mildly increased. Correlate for mi ld basilar congestion. These may be chronic. Haziness right middle lobe may indicate developing infil trate.
[2017-06-08] MEDS ORDERED: cefTRIAXone 1 GM in Sodium Chloride 0.9% 50 ML IV ONE (15:52)
[2017-06-08 17:02] VITALS: BP 100/40
== END 2017-06-08 17:02 | disposition home or self-care (01) ==
LOC: JP.ED 12:41
DX: N39.0 Urinary tract infection, site not specified (principal); N19 Unspecified kidney failure; I48.91 Unspecified atrial fibrillation; I25.10 Atherosclerotic heart disease of native coronary artery without angina pectoris; I50.9 Heart failure, unspecified; E78.00 Pure hypercholesterolemia, unspecified; J44.9 Chronic obstructive pulmonary disease, unspecified; F32.9 Major depressive disorder, single episode, unspecified; E10.9 Type 1 diabetes mellitus without complications; Z91.040 Latex allergy status; Z79.899 Other long term (current) drug therapy; Z79.01 Long term (current) use of anticoagulants; Z79.02 Long term (current) use of antithrombotics/antiplatelets; Z99.2 Dependence on renal dialysis; Z88.1 Allergy status to other antibiotic agents; Z95.5 Presence of coronary angioplasty implant and graft
CPT/HCPCS: 36415; 71020; 80053; 81001; 85025; 85610; 87086; 87205; 93005; 96365; 99284; J0696; J7050; 93010

== ENCOUNTER 2017-06-11 15:57 | Emergency (ER) | payer MEDICARE, BC ==
[2017-06-11] MEDS ORDERED: Sodium Chloride 0.9% 10 ML Syringe FLUSH PRN (16:41)
--- NOTE | 2017-06-11 17:36 | EDM.PDOC ---
ED HPI GENERAL MEDICAL PROBLEM - General Chief Complaint: General Stated Complaint: seizure Time Seen by Provider: 06/11/17 16:20 Source of Information: Reports: Patient, EMS History Limitations: Reports: Altered Mental Status - History of Present Illness INITIAL COMMENTS - FREE TEXT/NARRATIVE: Had brief tonic seizure per , while on dialysis. Eyes rolled back in head. Episode lasted ~15s. Had similar 5 days ago (see prior ED eval). Patient complaining he wants to go home, but is otherwise non-communicative. Per has been doing poorly since last week, complaining of LUQ/left chest pain. Onset: Today - Related Data Allergies Allergy/AdvReac Type Severity Reaction Status Date / Time ciprofloxacin [From Cipro] Allergy Cannot Verified 06/11/17 16:21 Remember ciprofloxacin HCl Allergy Cannot Verified 06/11/17 16:21 [From Cipro] Remember latex Allergy Rash Verified 06/11/17 16:21 Home Meds: Home Meds Albuterol/Ipratropium [DuoNeb 3.0-0.5 MG/3 ML] 3 ml PO Q2H PRN 09/21/14 [History ] Arformoterol [Brovana] 2 ml NEB BID 09/21/14 [History] Budesonide [Pulmicort] 2 ml NEB BID 09/21/14 [History] Furosemide [Lasix] 80 mg PO BID 09/21/14 [History] Insulin Aspart [NovoLOG] 6 units SUBCUT TIDM 09/21/14 [History] Insulin Glargine,Hum.Rec.Anlog [Lantus Solostar] 35 mg SUBCUT BEDTIME 09/21/14 [ History] Warfarin Sliding Scale [Coumadin Sliding Scale] 5 mg PO ASDIRECTED 09/21/14 [ History] Warfarin Sliding Scale [Coumadin Sliding Scale] 6.25 mg PO ASDIRECTED 10/22/14 [ History] Diltiazem HCl [Diltiazem 24Hr Cd] 240 mg PO DAILY 05/14/16 [History] Docusate Sodium [Colace] 250 mg PO TID 05/14/16 [History] Sennosides [Senna] 8.6 mg PO BID 05/14/16 [History] Albuterol Sulfate [Proair Hfa] 2 puff INH Q4H PRN 05/24/16 [History] Calcium Acetate [PhosLo] 1,334 mg PO TID 05/24/16 [History] Cyanocobalamin/FA/Pyridoxine [B Complex-Folic Acid] 1 tab PO DAILY 05/24/16 [ History] Enoxaparin [Lovenox] 80 mg IM BEDTIME 06/08/17 [History] Finasteride 5 mg PO DAILY 06/08/17 [History] Midodrine 5 mg PO ASDIRECTED 06/08/17 [History] Ondansetron [Zofran ODT] 4 mg PO Q6H PRN 06/08/17 [History] Phenazopyridine [Pyridium] 200 mg PO TID PRN 06/08/17 [History] clonazePAM [Clonazepam] 0.25 mg PO TID PRN 06/08/17 [History] oxyCODONE HCl/Acetaminophen [oxyCODONE-Acetaminophen 5-325] 1 tab PO Q4H PRN [History] Cefdinir 1 tab PO DAILY 06/11/17 [History] Past Medical History HEENT History: Reports: Hard of Hearing, Impaired Vision Cardiovascular History: Reports: Afib, Aneurysm, CAD, Heart Failure, High Cholesterol, Other (See Below) Other Cardiovascular History: hypotension Respiratory History: Reports: COPD, Sleep Apnea, Other (See Below) Other Respiratory History: C-pap at home Gastrointestinal History: Reports: Chronic Constipation, Hemorrhoids Genitourinary History: Reports: Dialysis, Retention, Urinary, Other (See Below) Other Genitourinary History: self cath Musculoskeletal History: Reports: Back Pain, Chronic Psychiatric History: Reports: Dementia, Depression Endocrine/Metabolic History: Reports: Diabetes, Type I - Infectious Disease History Infectious Disease History: Reports: Chicken Pox - Past Surgical History HEENT Surgical History: Reports: Cataract Surgery Cardiovascular Surgical History: Reports: Coronary Artery Stent Social & Family History - Tobacco Use Smoking Status *Q: Never Smoker Years of Tobacco use: 5 Used Tobacco, but Quit: Yes Month Tobacco Last Used: sep Second Hand Smoke Exposure: No - Caffeine Use Caffeine Use: Reports: Coffee, Soda - Alcohol Use Days Per Week of Alcohol Use: 0 - Recreational Drug Use Recreational Drug Use: No ED ROS GENERAL - Review of Systems Review Of Systems: Unable To Obtain ED EXAM, GENERAL - Physical Exam Exam: See Below Free Text/Narrative:: Arouses to voice, but speech garbled. Has purposeful movement, ata. w/ RUE, less so on L. Seems to have some tenderness over recent graft revision, which may be limited his use. Pupils symetric, mid range and reactive to light. Facies symetric. Intact corneal reflexes, but remainder of neurologic exam limited by his mental status. GCS 13. Lungs diminished bilat. No wheezes, rales or rhonchi heard. Heart sounds faint. Abdomen grossly distended with fluid wave. Tender, ata. LUQ. No rebound or guarding. LUE shows much worsened vascular status since I last saw him. Fingers are cold , mottled, with markedly delayed capillary refill. Exam Limited By: Altered Mental Status Eye Exam: Bilateral Eye: EOMI, PERRL Ears: Normal External Exam Nose: Normal Inspection Throat/Mouth: Normal Inspection, Normal Lips Head: Atraumatic, Normocephalic Neck: Normal Inspection, Supple, Non-Tender, Full Range of Motion Respiratory/Chest: No Respiratory Distress, Decreased Breath Sounds. No: No Accessory Muscle Use, Respiratory Distress Cardiovascular: Irregularly Irregular, Other (has bruit over AV graft). No: JVD , Diastolic Murmur, Systolic Murmur, Gallop/S3, Gallop/S4 GI/Abdominal: Distended, Tender, Other (exam limited by ascites. LUQ scar.). No: Guarding, Rigid, Rebound Back Exam: Normal Inspection Extremities: Pedal Edema (1+ pretibial on R, 2+ on L), Slow Capillary Refill ( left hand). No: Joint Swelling, Joya's Sign Neurological: Confused, Slow to Respond. No: Alert, Oriented, Normal Cognition Psychiatric: Other (cannot interpret) Skin Exam: Cool, Ecchymosis, Other (multiple suprficial ulcers on toes). No: Decubitus, Diaphoretic Lymphatic: No Adenopathy Course - Vital Signs Last Recorded V/S: Last Vital Signs Temp 35.6 C 06/11/17 16:18 Pulse 84 06/11/17 18:01 Resp 20 06/11/17 18:01 BP 125/50 L 06/11/17 18:01 Pulse Ox 96 06/11/17 18:01 - Orders/Labs/Meds Orders: Active Orders 24 hr Category Date Time Status Cardiac Monitoring [RC] .As Directed Care 06/11/17 16:41 Active EKG Documentation Completion [RC] ASDIRECTED Care 06/11/17 16:40 Active Oxygen Therapy Adult [Oxygen Therapy, ED] [RC] Care 06/11/17 16:42 Active ASDIRECTED Abdomen Pelvis wo Cont [CT] Stat Exams 06/11/17 17:12 Ordered Chest 1V Frontal [CR] Stat Exams 06/11/17 17:54 Ordered Head wo Cont [CT] Stat Exams 06/11/17 17:18 Ordered CELL COUNT,BODY FLUID [BF] Stat Lab 06/11/17 17:06 Uncollected CULTURE BODY FLUID + SMEAR [RM] Stat Lab 06/11/17 17:05 Uncollected PROTEIN,BODY FLUID [BF] Stat Lab 06/11/17 17:07 Uncollected Sodium Chloride 0.9% [Normal Saline] 1,000 ml Med 06/11/17 17:45 Active IV ASDIRECTED Sodium Chloride 0.9% [Saline Flush] Med 06/11/17 16:41 Active 10 ml FLUSH ASDIRECTED PRN Blood Culture x2 Reflex Set [OM.PC] Urgent Oth 06/11/17 17:07 Ordered Saline Lock Insert [OM.PC] Routine Oth 06/11/17 16:41 Ordered EKG 12 Lead [EK] Stat Ther 06/11/17 16:40 Ordered Medication Orders Sodium Chloride (Normal Saline) 1,000 mls @ 150 mls/hr IV ASDIRECTED KELLY Last Admin: 06/11/17 17:30 Dose: 150 mls/hr Sodium Chloride (Saline Flush) 10 ml FLUSH ASDIRECTED PRN PRN Reason: Keep Vein Open Last Admin: 06/11/17 18:03 Dose: 10 ml Labs: Laboratory Tests 06/11/17 06/11/17 06/11/17 Range/Units 16:41 17:04 17:04 WBC 7.5 (4.5-11.0) K/uL RBC 2.52 L (4.30-5.90) M/uL Hgb 8.9 L (12.0-15.0) g/dL Hct 25.5 L (40.0-54.0) % MCV 101 H (80-98) fL MCH 35 H (27-31) pg MCHC 35 (32-36) % Plt Count 217 (150-400) K/uL Neut % (Auto) 81 H (36-66) % Lymph % (Auto) 8 L (24-44) % [place] % (Auto) 10 H (2-6) % Eos % (Auto) 1 L (2-4) % Baso % (Auto) 0 (0-1) % PT 19.4 H (9.5-12.0) sec INR 1.77 H (0.80-1.20) APTT 29.9 (27.0-36.0) sec Sodium 131 L (140-148) mmol/L Potassium 3.8 (3.6-5.2) mmol/L Chloride 92 L (100-108) mmol/L Carbon Dioxide 31 (21-32) mmol/L Anion Gap 11.8 (5.0-14.0) mmol/L BUN 57 H (7-18) mg/dL Creatinine 4.3 H* (0.8-1.3) mg/dL Est Cr Clr Drug Dosing 14.56 mL/min Estimated GFR (MDRD) 13 L (>60) Glucose 187 H (74-106) mg/dL Calcium 8.9 (8.5-10.1) mg/dL POC WB Ioniz Calcium (1.12-1.32) mmol/L Total Bilirubin 1.2 H (0.2-1.0) mg/dL AST 18 (15-37) U/L ALT 13 (12-78) U/L Alkaline Phosphatase 47 (46-116) U/L Troponin I (0.000-0.056) ng/mL Total Protein 7.6 (6.4-8.2) g/dL Albumin 3.7 (3.4-5.0) g/dL Globulin 3.9 H (2.3-3.5) g/dL Albumin/Globulin Ratio 1.0 L (1.2-2.2) Lipase (73-393) U/L 06/11/17 06/11/17 06/11/17 Range/Units 17:14 17:17 17:51 WBC (4.5-11.0) K/uL RBC (4.30-5.90) M/uL Hgb (12.0-15.0) g/dL Hct (40.0-54.0) % MCV (80-98) fL MCH (27-31) pg MCHC (32-36) % Plt Count (150-400) K/uL Neut % (Auto) (36-66) % Lymph % (Auto) (24-44) % [place] % (Auto) (2-6) % Eos % (Auto) (2-4) % Baso % (Auto) (0-1) % PT (9.5-12.0) sec INR (0.80-1.20) APTT (27.0-36.0) sec Sodium (140-148) mmol/L Potassium (3.6-5.2) mmol/L Chloride (100-108) mmol/L Carbon Dioxide (21-32) mmol/L Anion Gap (5.0-14.0) mmol/L BUN (7-18) mg/dL Creatinine (0.8-1.3) mg/dL Est Cr Clr Drug Dosing mL/min Estimated GFR (MDRD) (>60) Glucose (74-106) mg/dL Calcium (8.5-10.1) mg/dL POC WB Ioniz Calcium 1.10 L (1.12-1.32) mmol/L Total Bilirubin (0.2-1.0) mg/dL AST (15-37) U/L ALT (12-78) U/L Alkaline Phosphatase (46-116) U/L Troponin I < 0.017 (0.000-0.056) ng/mL Total Protein (6.4-8.2) g/dL Albumin (3.4-5.0) g/dL Globulin (2.3-3.5) g/dL Albumin/Globulin Ratio (1.2-2.2) Lipase 611 H (73-393) U/L Meds: Medications Generic Name Dose Route Start Last Admin Trade Name Freq PRN Reason Stop Dose Admin Sodium Chloride 1,000 mls @ 150 mls/hr 06/11/17 17:45 06/11/17 17:30 Normal Saline IV 150 mls/hr ASDIRECTED KELLY Administration Sodium Chloride 10 ml 06/11/17 16:41 06/11/17 18:03 Saline Flush FLUSH 10 ml ASDIRECTED PRN Administration Keep Vein Open - Re-Assessments/Exams Free Text/Narrative Re-Assessment/Exam: 06/11/17 18:37 Repeat exam: Much improved speech and mentation. Moves x 4 to command. Weak (4/5) LUE and LLE, but per might be chronic. CT head: hypodense region in R frontal lobe (subcortical) with enlarged ventricles, and some additional old appearing chronic ischemic changes. No evidence edema or bleed. Abdomen: No fluid, abd. filled with fat, non-incarcerated hernia noted, enlarged spleen, large thoracic aorta <4 cm, calcific changes throughout vascular system, ata. aorta, with no extra-calcific bleeding. Liver nl. CXR: enlarged heart, chronic calcific changes to Ao and coronaries. No effusion, flat diaphragms c/w COPD, no infiltrate. Still awaiting radiology report. I discussed the need to transfer to [facility], with the risk of / further disability clearly explained to patient and his . Patient refuses transfer, wants to go home. He demonstrates clear understanding, has intact short/intermission coordinator memory, and speech is coherent. I find no reason to doubt his capacity for medical decision making and will release him to home against my advise. I advised him and his to contact/see their research and development specialist first thing in the morning. Departure - Departure Time of Disposition: 18:49 Disposition: Home, Self-Care 01 Clinical Impression: Delirium due to another medical condition, acute, hypoactive, Seizure Renal failure syndrome Qualifiers: Renal failure chronicity: chronic Chronic kidney disease stage: on chronic dialysis Qualified Code(s): N18.6 - End stage renal disease; Z99.2 - Dependence on renal dialysis - Discharge Information Referrals: Cyrus Deleon MD [Primary Care Provider] - Forms: ED Department Discharge - My Orders Last 24 Hours: My Active Orders 06/11/17 16:40 EKG Documentation Completion [RC] ASDIRECTED EKG 12 Lead [EK] Stat 06/11/17 16:41 Cardiac Monitoring [RC] .As Directed Sodium Chloride 0.9% [Saline Flush] 10 ml FLUSH ASDIRECTED PRN Saline Lock Insert [OM.PC] Routine 06/11/17 16:42 Oxygen Therapy Adult [Oxygen Therapy, ED] [RC] ASDIRECTED 06/11/17 17:05 CULTURE BODY FLUID + SMEAR [RM] Stat 06/11/17 17:06 CELL COUNT,BODY FLUID [BF] Stat 06/11/17 17:07 PROTEIN,BODY FLUID [BF] Stat Blood Culture x2 Reflex Set [OM.PC] Urgent 06/11/17 17:12 Abdomen Pelvis wo Cont [CT] Stat 06/11/17 17:18 Head wo Cont [CT] Stat 06/11/17 17:45 Sodium Chloride 0.9% [Normal Saline] 1,000 ml IV ASDIRECTED 06/11/17 17:54 Chest 1V Frontal [CR] Stat - Assessment/Plan Last 24 Hours: My Active Orders 06/11/17 16:40 EKG Documentation Completion [RC] ASDIRECTED EKG 12 Lead [EK] Stat 06/11/17 16:41 Cardiac Monitoring [RC] .As Directed Sodium Chloride 0.9% [Saline Flush] 10 ml FLUSH ASDIRECTED PRN Saline Lock Insert [OM.PC] Routine 06/11/17 16:42 Oxygen Therapy Adult [Oxygen Therapy, ED] [RC] ASDIRECTED 06/11/17 17:05 CULTURE BODY FLUID + SMEAR [RM] Stat 06/11/17 17:06 CELL COUNT,BODY FLUID [BF] Stat 06/11/17 17:07 PROTEIN,BODY FLUID [BF] Stat Blood Culture x2 Reflex Set [OM.PC] Urgent 06/11/17 17:12 Abdomen Pelvis wo Cont [CT] Stat 06/11/17 17:18 Head wo Cont [CT] Stat 06/11/17 17:45 Sodium Chloride 0.9% [Normal Saline] 1,000 ml IV ASDIRECTED 06/11/17 17:54 Chest 1V Frontal [CR] Stat Assessment:: Sz with prolonged post-ictal state. Unclear etiology, but may be result of very aggressive dialysis today. Elevated lipase <3x ULN is not diagnostic of pancreatitis. No evidence of AMI/AICS. 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 No evidence of acute bleed or stroke. I advised transfer for further evaluation and care of AV shunt. Plan: Discharged against my advise. Follow up [place] with your research and development specialist.
[2017-06-11] MEDS ORDERED: Sodium Chloride 0.9% 1,000 ML IV SCH (17:45)
[2017-06-11 18:02] VITALS: BP 125/50
--- NOTE | 2017-06-12 08:40 | CR ---
Chest 1V Frontal INDICATION: altered mental status FINDINGS: Comparison 06/08/2017. The patient is moderately rotated. Stable cardiac enlargement. Stable mild pulmonary venous hypertension. Increased density in the left hemithorax is likely due to patien t rotation; consider follow-up chest x-ray.
== END 2017-06-11 19:23 | disposition home or self-care (01) ==
LOC: JP.ED 15:57
DX: R56.9 Unspecified convulsions (principal); F19.921 Other psychoactive substance use, unspecified with intoxication with delirium; I13.2 Hypertensive heart and chronic kidney disease with heart failure and with stage 5 chronic kidney disease, or end stage renal disease; E10.22 Type 1 diabetes mellitus with diabetic chronic kidney disease; N18.6 End stage renal disease; Z99.2 Dependence on renal dialysis; J44.9 Chronic obstructive pulmonary disease, unspecified; G47.30 Sleep apnea, unspecified; F32.9 Major depressive disorder, single episode, unspecified; F03.90 Unspecified dementia, unspecified severity, without behavioral disturbance, psychotic disturbance, mood disturbance, and anxiety; Z98.49 Cataract extraction status, unspecified eye; Z95.5 Presence of coronary angioplasty implant and graft; Z87.891 Personal history of nicotine dependence; Z79.4 Long term (current) use of insulin; Z79.01 Long term (current) use of anticoagulants; Z79.2 Long term (current) use of antibiotics; Z79.899 Other long term (current) drug therapy; Z88.1 Allergy status to other antibiotic agents; Z91.040 Latex allergy status
CPT/HCPCS: 36415; 70450; 71010; 74176; 80053; 82330; 83690; 84484; 85025; 85610; 85730; 93005; 96360; 96361; 99285; J7040; J7050; 93010

== ENCOUNTER 2017-07-02 17:09 | Emergency (ER) | payer MEDICARE, BC ==
[2017-07-02 17:21] VITALS: BP 106/48
[2017-07-02] MEDS ORDERED: Ondansetron 4 MG Tab.DIS PO ONE (17:28)
--- NOTE | 2017-07-02 17:31 | EDM.PDOC ---
ED HPI GENERAL MEDICAL PROBLEM - General Chief Complaint: Cardiovascular Problem Stated Complaint: FROM DIALASIS Time Seen by Provider: 07/02/17 17:23 Source of Information: Reports: Patient, Family, RN Notes Reviewed History Limitations: Reports: No Limitations - History of Present Illness INITIAL COMMENTS - FREE TEXT/NARRATIVE: 81-year-old gentleman presents emergency department day complaint of syncopal event, this happened after his dialysis run today the took off 4500 mL of fluid he states he finished his run had then gone up to go to the bathroom at which time he felt lightheaded fainted was out for a couple minutes EMS services were called for transportation. States he was doing fine up until his dialysis run - Related Data Allergies Allergy/AdvReac Type Severity Reaction Status Date / Time ciprofloxacin [From Cipro] Allergy Cannot Verified 07/02/17 17:19 Remember ciprofloxacin HCl Allergy Cannot Verified 07/02/17 17:19 [From Cipro] Remember latex Allergy Rash Verified 07/02/17 17:19 Home Meds: Home Meds Albuterol/Ipratropium [DuoNeb 3.0-0.5 MG/3 ML] 3 ml PO Q2H PRN 09/21/14 [History ] Arformoterol [Brovana] 2 ml NEB BID 09/21/14 [History] Budesonide [Pulmicort] 2 ml NEB BID 09/21/14 [History] Furosemide [Lasix] 80 mg PO BID 09/21/14 [History] Insulin Aspart [NovoLOG] 10 units SUBCUT TIDM 09/21/14 [History] Insulin Glargine,Hum.Rec.Anlog [Lantus Solostar] 40 mg SUBCUT BEDTIME 09/21/14 [ History] Warfarin Sliding Scale [Coumadin Sliding Scale] 5 mg PO ASDIRECTED 09/21/14 [ History] Warfarin Sliding Scale [Coumadin Sliding Scale] 6.25 mg PO ASDIRECTED 10/22/14 [ History] Diltiazem HCl [Diltiazem 24Hr Cd] 120 mg PO DAILY 05/14/16 [History] Docusate Sodium [Colace] 100 mg PO TID 05/14/16 [History] Sennosides [Senna] 8.6 mg PO BID 05/14/16 [History] Albuterol Sulfate [Proair Hfa] 2 puff INH Q4H PRN 05/24/16 [History] Calcium Acetate [PhosLo] 1,334 mg PO TID 05/24/16 [History] Cyanocobalamin/FA/Pyridoxine [B Complex-Folic Acid] 1 tab PO DAILY 05/24/16 [ History] Finasteride 5 mg PO DAILY 06/08/17 [History] Midodrine 5 mg PO ASDIRECTED 06/08/17 [History] Ondansetron [Zofran ODT] 4 mg PO Q8H PRN 06/08/17 [History] Phenazopyridine [Pyridium] 200 mg PO TID PRN 06/08/17 [History] clonazePAM [Clonazepam] 0.25 mg PO BID PRN 06/08/17 [History] Folic Acid/Vitamin B Comp W-C [Dialyvite] 1 tab PO DAILY 07/02/17 [History] Scopolamine [Transderm-Scop] 1 patch TOP ASDIRECTED 07/02/17 [History] Past Medical History HEENT History: Reports: Hard of Hearing, Impaired Vision Cardiovascular History: Reports: Afib, Aneurysm, CAD, Heart Failure, High Cholesterol, Other (See Below) Other Cardiovascular History: hypotension Respiratory History: Reports: COPD, Sleep Apnea, Other (See Below) Other Respiratory History: C-pap at home Gastrointestinal History: Reports: Chronic Constipation, Hemorrhoids Genitourinary History: Reports: Dialysis, Retention, Urinary, Other (See Below) Other Genitourinary History: self cath Musculoskeletal History: Reports: Back Pain, Chronic Psychiatric History: Reports: Dementia, Depression Endocrine/Metabolic History: Reports: Diabetes, Type I - Infectious Disease History Infectious Disease History: Reports: Chicken Pox - Past Surgical History HEENT Surgical History: Reports: Cataract Surgery Cardiovascular Surgical History: Reports: Coronary Artery Stent Social & Family History - Tobacco Use Smoking Status *Q: Never Smoker Years of Tobacco use: 5 Used Tobacco, but Quit: Yes Month Tobacco Last Used: sep Second Hand Smoke Exposure: No - Caffeine Use Caffeine Use: Reports: Coffee, Soda - Alcohol Use Days Per Week of Alcohol Use: 0 - Recreational Drug Use Recreational Drug Use: No ED ROS GENERAL - Review of Systems Review Of Systems: See Below Constitutional: Reports: Weakness HEENT: Reports: No Symptoms Respiratory: Reports: No Symptoms Cardiovascular: Reports: Syncope GI/Abdominal: Reports: No Symptoms : Reports: No Symptoms Musculoskeletal: Reports: No Symptoms Skin: Reports: No Symptoms ED EXAM, GENERAL - Physical Exam Exam: See Below Exam Limited By: No Limitations General Appearance: Alert, WD/WN, No Apparent Distress Neck: Normal Inspection, Supple, Non-Tender, Full Range of Motion Respiratory/Chest: No Respiratory Distress, Lungs Clear, Normal Breath Sounds, No Accessory Muscle Use Cardiovascular: Regular Rate, Rhythm, No Murmur GI/Abdominal: Soft, Non-Tender Extremities: Non-Tender, No Pedal Edema Course - Vital Signs Last Recorded V/S: Last Vital Signs Temp 96.8 F 07/02/17 17:15 Pulse 96 07/02/17 17:15 Resp 22 H 07/02/17 17:15 BP 106/48 L 07/02/17 17:15 Pulse Ox 91 L 07/02/17 17:15 - Orders/Labs/Meds Orders: Active Orders 24 hr Category Date Time Status EKG Documentation Completion [RC] ASDIRECTED Care 07/02/17 17:29 Active EKG 12 Lead [EK] Stat Ther 07/02/17 17:28 Ordered Labs: Laboratory Tests 07/02/17 07/02/17 Range/Units 17:39 17:39 WBC 6.7 (4.5-11.0) K/uL RBC 2.78 L (4.30-5.90) M/uL Hgb 9.5 L (12.0-15.0) g/dL Hct 27.9 L (40.0-54.0) % MCV 100 H (80-98) fL MCH 34 H (27-31) pg MCHC 34 (32-36) % Plt Count 249 (150-400) K/uL Neut % (Auto) 71 H (36-66) % Lymph % (Auto) 15 L (24-44) % [place] % (Auto) 11 H (2-6) % Eos % (Auto) 3 (2-4) % Baso % (Auto) 0 (0-1) % Sodium 129 L (140-148) mmol/L Potassium 4.0 (3.6-5.2) mmol/L Chloride 90 L (100-108) mmol/L Carbon Dioxide 30 (21-32) mmol/L Anion Gap 13.0 (5.0-14.0) mmol/L BUN 46 H (7-18) mg/dL Creatinine 4.4 H* (0.8-1.3) mg/dL Est Cr Clr Drug Dosing 14.23 mL/min Estimated GFR (MDRD) 13 L (>60) Glucose 176 H (74-106) mg/dL Calcium 8.8 (8.5-10.1) mg/dL Total Bilirubin 1.3 H (0.2-1.0) mg/dL AST 13 L (15-37) U/L ALT 16 (12-78) U/L Alkaline Phosphatase 54 (46-116) U/L Total Protein 7.4 (6.4-8.2) g/dL Albumin 3.8 (3.4-5.0) g/dL Globulin 3.6 H (2.3-3.5) g/dL Albumin/Globulin Ratio 1.1 L (1.2-2.2) Meds: Medications Discontinued Medications Generic Name Dose Route Start Last Admin Trade Name Freq PRN Reason Stop Dose Admin Ondansetron HCl 4 mg 07/02/17 17:28 07/02/17 17:41 Zofran Odt PO 07/02/17 17:29 4 mg ONETIME ONE Administration Departure - Departure Time of Disposition: 18:17 Disposition: Home, Self-Care 01 Condition: Fair Clinical Impression: Syncope Qualifiers: Syncope type: vasovagal syncope Qualified Code(s): R55 - Syncope and collapse Referrals: Cyrus Deleon MD [Primary Care Provider] - Forms: ED Department Discharge Additional Instructions: Continue with your regular medications, keep your follow-up appointments with dialysis and primary care, call return to the emergency department worsening of symptoms - My Orders Last 24 Hours: My Active Orders 07/02/17 17:28 EKG 12 Lead [EK] Stat 07/02/17 17:29 EKG Documentation Completion [RC] ASDIRECTED - Assessment/Plan Last 24 Hours: My Active Orders 07/02/17 17:28 EKG 12 Lead [EK] Stat 07/02/17 17:29 EKG Documentation Completion [RC] ASDIRECTED Plan: Assessment Acuity = acute Site and laterality = syncopal event following dialysis run 4.5 liters removed, complicated in a patient with end-stage renal disease Etiology = probably related to fluid removal Manifestations = none Location of injury = Home Lab values = hemoglobin low at 9.5 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 This note was dictated using [employer] voice recognition software please call with any questions.
== END 2017-07-02 18:44 | disposition home or self-care (01) ==
LOC: JP.ED 17:09
DX: R55 Syncope and collapse (principal); I50.9 Heart failure, unspecified; I25.10 Atherosclerotic heart disease of native coronary artery without angina pectoris; I48.91 Unspecified atrial fibrillation; E78.00 Pure hypercholesterolemia, unspecified; J44.9 Chronic obstructive pulmonary disease, unspecified; G47.30 Sleep apnea, unspecified; E10.9 Type 1 diabetes mellitus without complications; F32.9 Major depressive disorder, single episode, unspecified; F03.90 Unspecified dementia, unspecified severity, without behavioral disturbance, psychotic disturbance, mood disturbance, and anxiety; Z98.49 Cataract extraction status, unspecified eye; Z95.5 Presence of coronary angioplasty implant and graft; Z99.2 Dependence on renal dialysis; Z87.891 Personal history of nicotine dependence; Z79.01 Long term (current) use of anticoagulants; Z79.899 Other long term (current) drug therapy; Z79.4 Long term (current) use of insulin; Z88.1 Allergy status to other antibiotic agents; Z91.040 Latex allergy status
CPT/HCPCS: 36415; 80053; 85025; 93005; 99284; A9270; 93010; 99283

== ENCOUNTER 2017-08-05 05:49 | Emergency (ER) | payer MEDICARE, BC ==
[2017-08-05] MEDS ORDERED: Albuterol/Ipratropium 3.0-0.5 MG/3 ML Neb Soln ONE (05:55)
[2017-08-05] MEDS ORDERED: Albuterol/Ipratropium 3.0-0.5 MG/3 ML Neb Soln NEB ONE (05:57)
[2017-08-05] MEDS ORDERED: Cefepime 1 GM in Sodium Chloride 0.9% 50 ML IV ONE (06:09)
--- NOTE | 2017-08-05 06:09 | EDM.PDOC ---
ED HPI GENERAL MEDICAL PROBLEM - General Chief Complaint: Respiratory Problem Stated Complaint: [facility] Time Seen by Provider: 08/05/17 05:50 Source of Information: Reports: Patient, EMS, Family History Limitations: Reports: Respiratory Distress - History of Present Illness INITIAL COMMENTS - FREE TEXT/NARRATIVE: 81-year-old male with COPD, diabetes, renal failure who was just discharged from the hospital 2 days ago after having a cholecystectomy. He felt poorly yesterday and developed chills. Overnight he became more short of breath, but refused to come into the hospital until this morning. They arrived at home and he was very critical, very dyspneic, dusky with O2 saturations at 80%. He was placed on BiPAP and urgently transported to the hospital. On arrival he was starting to improve, O2 saturations 92% but still unable to say more than 1 or 2 words at a time. His temperature was 101.2. He had no specific complaints of pain. He just wanted to go home. Onset: Gradual (Over the past 48 hours) Severity: Moderate Associated Symptoms: Reports: Confusion, Cough, Fever/Chills, Malaise, Shortness of Breath, Weakness. Denies: Chest Pain, Nausea/Vomiting - Related Data Allergies Allergy/AdvReac Type Severity Reaction Status Date / Time ciprofloxacin [From Cipro] Allergy Cannot Verified 08/05/17 06:24 Remember ciprofloxacin HCl Allergy Cannot Verified 08/05/17 06:24 [From Cipro] Remember latex Allergy Rash Verified 08/05/17 06:24 Home Meds: Home Meds Albuterol/Ipratropium [DuoNeb 3.0-0.5 MG/3 ML] 3 ml PO Q2H PRN 09/21/14 [History ] Arformoterol [Brovana] 2 ml NEB BID 09/21/14 [History] Budesonide [Pulmicort] 2 ml NEB BID 09/21/14 [History] Insulin Aspart [NovoLOG] 10 units SUBCUT TIDM 09/21/14 [History] Insulin Glargine,Hum.Rec.Anlog [Lantus Solostar] 35 mg SUBCUT BEDTIME 09/21/14 [ History] Diltiazem HCl [Diltiazem 24Hr Cd] 120 mg PO DAILY 05/14/16 [History] Docusate Sodium [Colace] 100 mg PO TID 05/14/16 [History] Albuterol Sulfate [Proair Hfa] 2 puff INH Q4H PRN 05/24/16 [History] Calcium Acetate [PhosLo] 1,334 mg PO TID 05/24/16 [History] Cyanocobalamin/FA/Pyridoxine [B Complex-Folic Acid] 1 tab PO DAILY 05/24/16 [ History] Finasteride 5 mg PO DAILY 06/08/17 [History] Midodrine 5 mg PO ASDIRECTED 06/08/17 [History] Ondansetron [Zofran ODT] 4 mg PO Q8H PRN 06/08/17 [History] Phenazopyridine [Pyridium] 200 mg PO TID PRN 06/08/17 [History] clonazePAM [Clonazepam] 0.25 mg PO BID PRN 06/08/17 [History] Albuterol [Proventil Neb Soln] 1 inh INH Q4H PRN 08/05/17 [History] Past Medical History HEENT History: Reports: Hard of Hearing, Impaired Vision Cardiovascular History: Reports: Afib, Aneurysm, CAD, Heart Failure, High Cholesterol, Other (See Below) Other Cardiovascular History: hypotension Respiratory History: Reports: COPD, Sleep Apnea, Other (See Below) Other Respiratory History: C-pap at home Gastrointestinal History: Reports: Chronic Constipation, Hemorrhoids Genitourinary History: Reports: Dialysis, Retention, Urinary, Other (See Below) Other Genitourinary History: self cath Musculoskeletal History: Reports: Back Pain, Chronic Psychiatric History: Reports: Dementia, Depression Endocrine/Metabolic History: Reports: Diabetes, Type I - Infectious Disease History Infectious Disease History: Reports: Chicken Pox - Past Surgical History HEENT Surgical History: Reports: Cataract Surgery Cardiovascular Surgical History: Reports: Coronary Artery Stent Social & Family History - Tobacco Use Smoking Status *Q: Never Smoker Years of Tobacco use: 5 Used Tobacco, but Quit: Yes Month Tobacco Last Used: sep Second Hand Smoke Exposure: No - Caffeine Use Caffeine Use: Reports: Coffee, Soda - Alcohol Use Days Per Week of Alcohol Use: 0 - Recreational Drug Use Recreational Drug Use: No ED ROS GENERAL - Review of Systems Review Of Systems: See Below Constitutional: Reports: Fever, Chills, Malaise, Weakness HEENT: Reports: No Symptoms Respiratory: Reports: Shortness of Breath, Cough. Denies: Sputum Cardiovascular: Denies: Chest Pain, Palpitations GI/Abdominal: Reports: Abdominal Pain (Postsurgical pain). Denies: Nausea, Vomiting : Reports: Other (Patient has renal failure and makes very little urine, self catheterizes at home) Skin: Reports: Bruising (Several areas of bruising from his recent surgeries, especially on the abdomen and left arm) Neurological: Reports: Confusion Psychiatric: Reports: Anxiety ED EXAM, GENERAL - Physical Exam Exam: See Below Exam Limited By: Respiratory Distress General Appearance: Alert, Moderate Distress Eye Exam: Bilateral Eye: EOMI (No jaundice) Respiratory/Chest: Respiratory Distress, Wheezing (Diffuse inspiratory and expiratory wheezes are heard). No: Rales, Rhonchi Cardiovascular: Regular Rate, Rhythm, Tachycardia GI/Abdominal: Distended, Other (Abdomen is obese, no focal tenderness. Surgical incisions have bruising but no erythema). No: Tender Extremities: Pedal Edema (Some minimal pedal edema, some venous stasis changes of the lower extremities) Neurological: Alert, Confused, Slow to Respond Psychiatric: Depressed Mood, Flat Affect Skin Exam: Warm, Diaphoretic (Mild diaphoresis is present) Course - Vital Signs Last Recorded V/S: Last Vital Signs Temp 101.4 F H 08/05/17 05:52 Pulse 133 H 08/05/17 05:52 Resp 25 H 08/05/17 06:26 BP 128/61 08/05/17 06:30 Pulse Ox 94 L 08/05/17 06:26 - Orders/Labs/Meds Orders: Active Orders 24 hr Category Date Time Status RT Aerosol Therapy [RC] ASDIRECTED Care 08/05/17 05:57 Active Chest 1V Frontal [CR] Stat Exams 08/05/17 05:55 Taken CULTURE BLOOD [BC] Urgent Lab 08/05/17 06:00 Received CULTURE BLOOD [BC] Urgent Lab 08/05/17 06:10 Received Blood Culture x2 Reflex Set [OM.PC] Urgent Oth 08/05/17 05:59 Ordered Labs: Laboratory Tests 08/05/17 08/05/17 08/05/17 Range/Units 05:59 06:02 06:02 WBC 12.3 H (4.5-11.0) K/uL RBC 2.31 L (4.30-5.90) M/uL Hgb 7.9 L (12.0-15.0) g/dL Hct 24.5 L (40.0-54.0) % MCV 106 H (80-98) fL MCH 34 H (27-31) pg MCHC 32 (32-36) % Plt Count 199 (150-400) K/uL Neut % (Auto) 90 H (36-66) % Lymph % (Auto) 2 L (24-44) % [place] % (Auto) 8 H (2-6) % Eos % (Auto) 0 L (2-4) % Baso % (Auto) 0 (0-1) % Sodium 127 L (140-148) mmol/L Potassium 7.3 H* (3.6-5.2) mmol/L Chloride 89 L (100-108) mmol/L Carbon Dioxide 25 (21-32) mmol/L Anion Gap 20.3 H (5.0-14.0) mmol/L BUN 71 H D (7-18) mg/dL Creatinine 8.5 H* D (0.8-1.3) mg/dL Est Cr Clr Drug Dosing 7.35 mL/min Estimated GFR (MDRD) 6 L (>60) Glucose 235 H (74-106) mg/dL Lactic Acid 3.3 H (0.4-2.0) mmol/L Calcium 8.7 (8.5-10.1) mg/dL Meds: Medications Discontinued Medications Generic Name Dose Route Start Last Admin Trade Name Freq PRN Reason Stop Dose Admin Albuterol/Ipratropium 3 ml 08/05/17 05:57 08/05/17 06:03 Duoneb 3.0-0.5 Mg/3 Ml NEB 08/05/17 05:58 3 ml ONETIME ONE Administration Albuterol/Ipratropium Confirm 08/05/17 05:55 08/05/17 06:03 Duoneb 3.0-0.5 Mg/3 Ml Administered 08/05/17 05:56 Not Given Dose 3 ml .ROUTE .STK-MED ONE Furosemide 80 mg 08/05/17 06:24 08/05/17 06:30 Lasix IVPUSH 08/05/17 06:25 80 mg ONETIME ONE Administration Cefepime HCl 1 gm/ Sodium 50 mls @ 100 mls/hr 08/05/17 06:09 08/05/17 06:19 Chloride IV 08/05/17 06:38 100 mls/hr ONETIME ONE Administration Insulin Human Regular 8 unit 08/05/17 06:38 08/05/17 06:42 Novolin R IVPUSH 08/05/17 06:39 8 units ONETIME ONE Administration Protocol - Re-Assessments/Exams Free Text/Narrative Re-Assessment/Exam: 08/05/17 06:23 CBC, BMP, blood cultures and lactic acid were obtained urgently. A 1 view chest x-ray appears to have fluid overload and no infiltrate is obvious. After blood cultures were drawn he was given 1 g of cefepime IV. Also 60 mg of Lasix IV. He' ll be urgently transferred to [facility] from where he was just discharged. Dr. Francis kindly accepted his admission. 08/05/17 06:39 Potassium returned 7.3, glucose was 263 so the patient was given 8 units of IV regular insulin. We considered flying him but it too foggy so he'll be urgently transported by ground. Departure - Departure Time of Disposition: 06:49 Disposition: DC/Tfer to Other 70 Condition: Poor Clinical Impression: COPD exacerbation, Acute hyperkalemia Congestive heart failure (CHF) Qualifiers: Congestive heart failure type: unspecified congestive heart failure type Congestive heart failure chronicity: acute on chronic Qualified Code(s): I50.9 - Heart failure, unspecified - Discharge Information Referrals: PCP,None [Primary Care Provider] - Forms: ED Department Discharge Care Plan Goals: Patient will be urgently transferred to [facility] where he can receive care for fluid overload, hyperkalemia, COPD exacerbation. - My Orders Last 24 Hours: My Active Orders 08/05/17 05:55 Chest 1V Frontal [CR] Stat 08/05/17 05:57 RT Aerosol Therapy [RC] ASDIRECTED 08/05/17 05:59 Blood Culture x2 Reflex Set [OM.PC] Urgent 08/05/17 06:00 CULTURE BLOOD [BC] Urgent 08/05/17 06:10 CULTURE BLOOD [BC] Urgent - Assessment/Plan Last 24 Hours: My Active Orders 08/05/17 05:55 Chest 1V Frontal [CR] Stat 08/05/17 05:57 RT Aerosol Therapy [RC] ASDIRECTED 08/05/17 05:59 Blood Culture x2 Reflex Set [OM.PC] Urgent 08/05/17 06:00 CULTURE BLOOD [BC] Urgent 08/05/17 06:10 CULTURE BLOOD [BC] Urgent
[2017-08-05] MEDS ORDERED: Furosemide 40 MG/4 ML VIAL IVPUSH ONE (06:24)
[2017-08-05 06:30] VITALS: BP 128/61
[2017-08-05] MEDS ORDERED: Insulin Regular, Human 100 Units/ML 10 ML Vial IVPUSH ONE (06:38)
--- NOTE | 2017-08-06 08:54 | CR ---
Chest 1V Frontal INDICATION: short of breath FINDINGS: Comparison 06/11/2017. Cardiac enlargement. Patchy infiltrate in the left mid and lower lung . Vascular stent projected over the scapula. Exam otherwise negative.
== END 2017-08-05 06:49 | disposition other institution (70) ==
LOC: JP.ED 05:49
DX: J44.1 Chronic obstructive pulmonary disease with (acute) exacerbation (principal); I50.9 Heart failure, unspecified; E87.5 Hyperkalemia; Z88.8 Allergy status to other drugs, medicaments and biological substances; Z91.040 Latex allergy status; Z79.4 Long term (current) use of insulin; E78.00 Pure hypercholesterolemia, unspecified; E10.9 Type 1 diabetes mellitus without complications
CPT/HCPCS: 36415; 71010; 80048; 83605; 85025; 87040; 94640; 96365; 96375; 99284; A9270; J0692; J1940; J7050; J7620